=== PATIENT | female | born 1990 | race Caucasian/White ===

== ENCOUNTER 2023-01-18 05:32 | Outpatient (CLI) | payer BC ==
[~2023-01-18] VITALS: Ht 165.1 cm; Wt 108.2 kg
[2023-01-18] MEDS ORDERED: DESV100T PO (13:50)
[2023-01-18] MEDS ORDERED: MULT200T12 PO (13:50)
[2023-01-18] MEDS ORDERED: ALPR0.5T PO (13:50)
[2023-01-18] MEDS ORDERED: PRD20T PO (13:50)
[2023-01-18] MEDS ORDERED: ACET500P24 PO (13:50)
[2023-01-18] MEDS ORDERED: FOLI1TAB33 PO (13:50)
[2023-01-18] MEDS ORDERED: PREG50CA65 PO (13:50)
[2023-01-18] MEDS ORDERED: LEVE100015 PO (13:50)
[2023-01-18] MEDS ORDERED: LEVO5TAB28 PO (13:50)
== END 2023-01-23 08:50 | disposition home or self-care (01) ==
LOC: PREOP 05:32
PROVIDERS: ATTEND Otolaryngology Otolaryngology/Facial Plastic Surgery
DX: Z01.818 Encounter for other preprocedural examination (principal); J32.9 Chronic sinusitis, unspecified

== ENCOUNTER 2023-01-26 06:55 | Day surgery (SDC) | payer BC ==
[2023-01-26] VITALS (11 sets, daily range): BP systolic 118–144; BP diastolic 73–104
[~2023-01-26] VITALS: Ht 165.1 cm; Wt 108.2 kg
[~2023-01-26 06:55] MED LIST: ACET500P24 PO; ALPR0.5T PO; DESV100T PO; FOLI1TAB33 PO; LEVE100015 PO; LEVO5TAB28 PO; MULT200T12 PO; PRD20T PO; PREG50CA65 PO
[2023-01-26] MEDS ORDERED: PHENYLEPHRINE 0.5% NASAL SPR (NEO-SYNEPHRINE) REG ONE (07:26)
[2023-01-26] MEDS ORDERED: COCAINE HCL 4% 2 ML SYR ONE (07:26)
[2023-01-26] MEDS ORDERED: BSS 15 ML ONE (07:27)
[2023-01-26] MEDS ORDERED: LIDOCAINE/EPI 1%-1:100,000 (XYLOCAINE) 20ML ONE (07:27)
[2023-01-26] MEDS ORDERED: MIDAZOLAM 2 MG/2 ML (VERSED) VIAL IV ONE (07:45)
[2023-01-26] MEDS ORDERED: AMPICILLIN/SULBACTAM 1.5 GM/NS 100 ML IVPB IV ONE ×2 (08:00)
[2023-01-26] MEDS ORDERED: HYDROCORTISONE 100 MG/2 ML (Solu-CORTEF) VIAL IV ONE ×2 (08:00→08:15)
[2023-01-26 08:09] LABS: BASOPHILS # (AUTO) 0.1 10^3/uL (0.0-0.1); BASOPHILS % (AUTO) 1 % (0-10); EOSINOPHILS # (AUTO) 0.1 10^3/uL (0.0-0.3); EOSINOPHILS % (AUTO) 1 % (0-10); HEMATOCRIT 44 % (35-52); HEMOGLOBIN 14.5 g/dL (11.5-16.0); LYMPHOCYTES # (AUTO) 2.9 10^3/uL (1.0-4.0); LYMPHOCYTES % (AUTO) 26 % (12-44); MEAN CORPUSCULAR HEMOGLOBIN 28 pg (25-34); MEAN CORPUSCULAR HGB CONC 33 g/dL (32-36); MEAN CORPUSCULAR VOLUME 85 fL (80-99); MEAN PLATELET VOLUME 9.6 fL (9.0-12.2); MONOCYTES # (AUTO) 0.8 10^3/uL (0.0-1.0); MONOCYTES % (AUTO) 7 % (0-12); NEUTROPHILS # (AUTO) 7.1 10^3/uL (1.8-7.8); NEUTROPHILS % (AUTO) 65 % (42-75); PLATELET COUNT 333 10^3/uL (130-400)
[2023-01-26] MEDS ORDERED: LACTATED RINGERS 1,000 ML IV PRN (08:15)
[2023-01-26] MEDS ORDERED: AMPICILLIN/SULBACTAM INJECTION 1.5 GM in NS (IVPB) 100 ML IV ONE (08:15)
[2023-01-26 08:27] LABS: CALCIUM 8.5 MG/DL (8.5-10.1); CREATININE SERUM 0.79 MG/DL (0.60-1.30); POTASSIUM 3.7 MMOL/L (3.6-5.0)
[2023-01-26] MEDS ORDERED: ONDANSETRON 4 MG/2 ML (SDV) Z0FRAN ONE ×2 (08:33→09:56)
[2023-01-26] MEDS ORDERED: LIDOCAINE PF 2% 5 ML (XYLOCAINE) VIAL ONE (08:33)
[2023-01-26] MEDS ORDERED: GLYCOPYRROLATE 0.2 MG/ML (ROBINUL) 2 ML VIAL ONE (08:33)
[2023-01-26] MEDS ORDERED: proPOfol 200 MG/20 ML (DIPRIVAN) VIAL IV ONE ×2 (08:33→09:00)
[2023-01-26] MEDS ORDERED: fentaNYL INJ 100 MCG/2 ML AMP ONE (08:33)
[2023-01-26] MEDS ORDERED: ROCURONIUM 50 MG/5 ML (ZEMURON) VIAL IV ONE (08:34)
[2023-01-26] MEDS ORDERED: NEOSTIGMINE (BLOXIVERZ ) 1 MG/1ML 10 ML VIAL ONE (08:34)
--- NOTE | 2023-01-26 08:52 | Progress Note-Pre Operative ---
Pre-Operative Progress Note Date of Available H&P: Jan 26, 2023 Date H&P Reviewed: Jan 26, 2023 Time H&P Reviewed: 08:00 History & Physical: H&P Reviewed, Patient Examed, No changes noted Changes from last HP none Pre-Operative Diagnosis: Bilat Chornic Sinusitis, Bilat Hyper of INf Turbs BELKIS SMITH MD Jan 26, 2023 08:52
[2023-01-26] MEDS ORDERED: COCAINE HCL 4% 2 ML SYR NS ONE (09:20)
[2023-01-26] MEDS ORDERED: predniSONE 20 MG TAB PO ONE (09:45)
[2023-01-26] MEDS ORDERED: oxyCODONE/APAP 5/325MG (PERCOCET 5) TABLET PO PRN (09:45)
[2023-01-26] MEDS ORDERED: PROMETHAZINE INJ 25 MG/ML (PHENERGAN) AMP IVP PRN (09:45)
[2023-01-26] MEDS ORDERED: D5 1/2 NS W/KCL 20 MEQ/L 1,000 ML IV SCH (09:45)
--- NOTE | 2023-01-26 09:45 | Progress Note-Post Operative ---
Post-Operative Progess Note Surgeon (s)/Brush Or Broom Cutter (s) Surgeon BELKIS SMITH MD Brush Or Broom Cutter n/a Pre-Operative Diagnosis Bilat Chornic Sinusitis, Bilat Hyper of INf Turbs Post-Operative Diagnosis same Post-Op Procedure Note Date of Procedure: Jan 26, 2023 Name of Procedure Performed: Bilat ESS, Bilat Red of Inf Turbs Description & Findings Description and Findings: n/a Anesthesia Type get Estimated Blood Loss minimal Packing none. Specimen(s) collected/removed bilat chornic sinus disease BELKIS SMITH MD Jan 26, 2023 09:45
[2023-01-26] MEDS ORDERED: LIDOCAINE/EPI 1%-1:100,000 (XYLOCAINE) 20ML INJ ONE (09:49)
[2023-01-26] MEDS ORDERED: SEVOFLURANE (ULTANE) 15 ML INHAL SOLN ONE (09:54)
[2023-01-26] MEDS ORDERED: morphine INJ 10 MG/ML 1ML (SYR OR VIAL) ONE (09:56)
[2023-01-26] MEDS ORDERED: HYDROmorphone 2 MG/ML VIAL (DILAUDID) IV ONE (10:00)
[2023-01-26] MEDS ORDERED: ONDANSETRON 4 MG/2 ML (SDV) Z0FRAN IVP PRN (10:00)
[2023-01-26] MEDS ORDERED: morphine INJ 10 MG/ML 1ML (SYR OR VIAL) IVP ONE (10:00)
[2023-01-26] MEDS ORDERED: PRD20T PO (11:07)
[2023-01-26] MEDS ORDERED: OXYC1TAB87 PO (11:07)
[2023-01-26] MEDS ORDERED: AMOX-355 PO (11:07)
--- NOTE | 2023-01-26 14:32 | Anesthesia-General Post-Op ---
General Patient Condition Mental Status/LOC: Same as Preop Cardiovascular: Satisfactory Nausea/Vomiting: Absent Respiratory: Satisfactory Pain: Controlled Complications: Absent Post Op Complications Complications None Follow Up Care/Instructions Patient Instructions None needed. Anesthesia/Patient Condition Patient Condition Patient was doing well after the procedure with no complaints, stable vital signs, no apparent adverse anesthesia problems. No complications reported per nursing. ISMAEL URIOSTEGUI 24, 2023 14:32
== END 2023-01-26 12:00 | disposition home or self-care (01) ==
LOC: SDC 06:55
PROVIDERS: ATTEND Otolaryngology Otolaryngology/Facial Plastic Surgery
DX: J32.8 Other chronic sinusitis (principal); J34.3 Hypertrophy of nasal turbinates; R51.9 Headache, unspecified; R09.81 Nasal congestion; Z91.040 Latex allergy status; Z87.891 Personal history of nicotine dependence
CPT/HCPCS: 36415; 80048; 84703; 85025; 87081